=== PATIENT | male | born 1945 | race Caucasian/White ===

== ENCOUNTER 2019-12-08 06:34 | Inpatient (IN) ==
--- NOTE | 2019-11-24 08:45 | PAT Medication Instructions ---
Medication Instructions Date of Service November 24, 2019 Home Medications amlodipine [Norvasc] 2.5 mg PO QAM aspirin 81 mg PO QAM atorvastatin [Lipitor] 20 mg PO QPM citalopram [Celexa] 10 mg PO QPM cyanocobalamin (vitamin B-12) [Vitamin B-12] 1,000 mcg PO QAM finasteride 5 mg PO QPM glimepiride 1 mg PO QAM lisinopril 40 mg PO QAM metformin 1,000 mg PO BID metronidazole [Metrogel] 1 applic TOPICAL UD PRN multivitamin 1 tab PO QAM ASK your prescriber and surgeon aspirin 81 mg PO QAM STOP taking 24 hours before surgery metronidazole [Metrogel] 1 applic TOPICAL UD PRN DO NOT take the morning of surgery cyanocobalamin (vitamin B-12) [Vitamin B-12] 1,000 mcg PO QAM glimepiride 1 mg PO QAM lisinopril 40 mg PO QAM metformin 1,000 mg PO BID multivitamin 1 tab PO QAM Take morning of surgery With a small sip of water, OTHERWISE NOTHING TO EAT OR DRINK AFTER MIDNIGHT: amlodipine [Norvasc] 2.5 mg PO QAM Take evening before surgery atorvastatin [Lipitor] 20 mg PO QPM citalopram [Celexa] 10 mg PO QPM finasteride 5 mg PO QPM metformin 1,000 mg PO BID Other Notes If you have any questions please call us at [phone] or [phone] or [phone] or [phone]
--- NOTE | 2019-11-25 09:23 | Anesthesiology Consultation ---
Date of Service November 25, 2019 Assessment & Plan (1) Encounter for pre-operative examination: - Per assessment on 11/24: Travel screen negative. No known COVID-19 positive contacts or current COVID-19 related symptoms. Surgeon arranging preop COVID testing (scheduled 12/02; [facility]). Awaiting results. - Check [facility] AM DOS - PCP office visit: 11/18/19: "Patient is cleared pending pre-op evaluation by orthopaedics.. He is scheduled next week and EKG, labs, and xray will be done at that time." Preop testing done at [facility] 11/25/19 was unremarkable- [facility] financial secretary will forward results to PCP for their reference.* - ASA instructions per surgeon/prescriber Chart Review Chart Review: Acceptable Risk for Surgery and Patient seen in Pre Admission Testing Teaching & Discussion Pre-Anesthesia Teaching/Discussion Notes: Instructed NPO after midnight before surgery,except medications with 15 cc of water. Medication instructions provided according to the [facility] guidelines. History Surgery Operation Date: 12/08/19 10:05 Proposed Procedures p L2-L3 Decompression and Fusion, L3 Medicrea Removal, Spinal Cord Monitoring - Beto Palomino, Height/Weight Height: 5 ft 11 in Weight: 94.3 kg Allergies Allergy/AdvReac Type Severity Reaction Status Date / Time No Known Allergies Allergy Unknown Verified 11/18/19 12:24 Medications Home Medications Medication Instructions Recorded Confirmed Last Taken amlodipine [Norvasc] 2.5 mg PO QAM 11/18/19 11/18/19 Unknown aspirin 81 mg PO QAM 11/18/19 11/18/19 Unknown atorvastatin [Lipitor] 20 mg PO QPM 11/18/19 11/18/19 Unknown citalopram [Celexa] 10 mg PO QPM 11/18/19 11/18/19 Unknown cyanocobalamin (vitamin B-12) 1,000 mcg PO QAM 11/18/19 11/18/19 Unknown [Vitamin B-12] finasteride 5 mg PO QPM 11/18/19 11/18/19 Unknown glimepiride 1 mg PO QAM 11/18/19 11/18/19 Unknown lisinopril 40 mg PO QAM 11/18/19 11/18/19 Unknown metformin 1,000 mg PO BID 11/18/19 11/18/19 Unknown metronidazole [Metrogel] 1 applic TOPICAL UD PRN 11/18/19 11/18/19 Unknown multivitamin 1 tab PO QAM 11/18/19 11/18/19 Unknown Past Medical History Medical History Diabetes mellitus, type 2 NIDDM History of anxiety HTN (hypertension) Hyperlipidemia Osteoarthritis Exercise / Class Metabolic Activity III < 4 Walking/Shop/Light housework Past Family History Family History Other No family history of adverse response to anesthesia Past Surgical History Surgical History History of back surgery x2 History of colonoscopy History of tooth extraction Past Anesthesia History No Hx of Anesthesia Complications and No Family Hx of Anesthesia Complications History of PONV No Hx of PONV and No Hx of Motion Sickness Social History Smoking Status: Former smoker Do You Dip or Chew Tobacco: No Smoking End Date: Quit many years ago Hx Alcohol Use: Yes Alcohol type: beer alcohol intake frequency: a few times a month Hx Substance Use: No substance use type: does not use Review of Systems Patient denies chest pain, shortness of breath, fever, chills, reflux, cough, wheezing, palpitations. Physical Exam Vital Signs VITALS BP 120/75 P 75 TEMP 97.8 SP02 97%RA RESP 16 PHYSICAL Full neck and c-spine range of motion. Full TMJ range of motion. TMD 3.5 finger breaths Mallampati Score 3 Dentition: partial upper Lungs: clear throughout to auscultation Cardiac: regular rate and rhythm with occasional extra beat, no murmurs noted Spine: normal Carotid arteries: negative bruit Extremities: no edema Testing Laboratory Results 11/25/19 09:48 PT 11.4 Seconds (9.0-12.0) 11/25/19 09:48 INR 1.1 (0.9-1.1) 11/25/19 09:48 APTT 26.4 Seconds (21.0-31.0) 11/25/19 09:48 Urine Color Yellow 11/25/19 09:48 Urine Appearance Clear (Clear) 11/25/19 09:48 Urine pH 7.0 (4.5-7.5) 11/25/19 09:48 Ur Specific [place] 1.017 (1.000-1.030) 11/25/19 09:48 Urine Protein Negative (Negative) 11/25/19 09:48 Urine Glucose (UA) Negative (Negative) 11/25/19 09:48 Urine Ketones Negative (Negative) 11/25/19 09:48 Urine Nitrite Negative (Negative) 11/25/19 09:48 Ur Leukocyte Esterase Negative (Negative) 11/25/19 09:48 Blood Type B Positive 11/25/19 09:48 Antibody Screen NEGATIVE 11/25/19 09:48 10/13/19 SODIUM 143 POTASSIUM 4.3 CHLORIDE 103 CO2 28 BUN 17 CREATININE 0.8 GLUCOSE 113 HGBA1C 5.8% Electrocardiogram Date: 11/25/19 NSR at 60bpm. Possible anterior infarct (no significant change compared to 12/19/2012 per medical technologist hematology review). Chest X-Ray Date: 11/25/19 FINDINGS: Cardiac mediastinal and hilar silhouettes are within normal limits. No pneumothorax, pleural effusion, airspace consolidation or overt pulmonary edema. Degenerative changes of the shoulders and spine. Lower cervical plate and screw fusion hardware. Age-indeterminate 25% anterior endplate compression deformity of L1 is new from comparison. No appreciable retropulsion. IMPRESSION: No acute processes of the chest. Age-indeterminate L1 compression deformity, ne w from 2013.
--- NOTE | 2019-11-25 10:22 | XRay Report ---
XR chest Pre-admission PA/Lat HISTORY: 74 years-old Male pat preoperative exam. No acute chest complaints COMPARISON: Chest radiograph 12/19/2012, lumbar spine radiographs 01/06/2013 TECHNIQUE: PA and lateral views of the chest FINDINGS: Cardiac mediastinal and hilar silhouettes are within normal limits. No pneumothorax, pleural effusion , airspace consolidation or overt pulmonary edema. Degenerative changes of the shoulders and spine. L ower cervical plate and screw fusion hardware. Age-indeterminate 25% anterior endplate compression de formity of L1 is new from comparison. No appreciable retropulsion. IMPRESSION: 1. No acute processes of the chest. 2. Age-indeterminate L1 compression deformity, new from 2013. ACT 112: Negative or not required by law. The above report was generated using voice recognition software. It may contain grammatical, syntax o r spelling errors. Electronically signed by: Chavez De León M.D. 11/25/2019 10:21 AM
[2019-11-25 10:35] LABS: Appearance Urine Clear (Clear); Bilirubin Urine Negative (Negative); Blood Urine Negative (Negative); Color Urine Yellow; Glucose Urine UA Negative (Negative); Ketones Urine Negative (Negative); Leukocyte Esterase Urine Negative (Negative); Nitrite Urine Negative (Negative); Protein Urine Negative (Negative); Specific Gravity Urine 1.017 (1.000-1.030); Urobilinogen Urine Negative (Negative)
[2019-11-25 10:40] LABS: INR 1.1 (0.9-1.1); Partial Thromboplastin Ratio 0.9; Partial Thromboplastin Time 26.4 Seconds (21.0-31.0); Prothrombin Time 11.4 Seconds (9.0-12.0)
[2019-11-25 10:51] LABS: Basophils # (auto) 0.02 K/uL (0-0.2); Basophils % (auto) 0.3 %; Eosinophils # (auto) 0.03 K/uL (0-0.5); Eosinophils % (auto) 0.4 %; Hematocrit (blood only) 43.5 % (42-52); Hemoglobin 14.8 g/dL (14.0-18.0); Immature Granulocytes # (auto) 0.02 K/uL (0.00-0.02); Immature Granulocytes % (auto) 0.3 %; Lymphocytes # (auto) 2.04 K/uL (1.2-3.4); Lymphocytes % (auto) 27.1 %; Mean Corpuscular Hemoglobin 29.9 pg (25-34); Mean Corpuscular Volume 87.9 fL (80-100); Mean Platelet Volume 8.9 fL (7.4-10.4); Monocytes # (auto) 0.36 K/uL (0.11-0.59); Monocytes % (auto) 4.8 %; Neutrophils # (auto) 5.07 K/uL (1.4-6.5); Neutrophils % (auto) 67.1 %; Platelet Count 202 K/uL (130-400); RDW Coefficient of Variation 13.4 % (11.5-14.5); RDW Standard Deviation 42.9 fL (36.4-46.3); Red Blood Count 4.95 M/uL (4.7-6.1); White Blood Count 7.54 K/uL (4.8-10.8)
--- NOTE | 2019-11-26 14:12 | Electrocardiogram Report ---
Test Reason : Blood Pressure : / mmHG Vent. Rate : 060 BPM Atrial Rate : 060 BPM P-R Int : 174 ms QRS Dur : 092 ms QT Int : 404 ms P-R-T Axes : 063 -01 007 degrees QTc Int : 404 ms Normal sinus rhythm Possible Anterior infarct , age undetermined Abnormal ECG When compared with ECG of 19-DEC-2012 11:38, No significant change was found Confirmed by Syd Castillo ([id number]) on 11/26/2019 2:12:01 PM Referred By: Beto Palomino Confirmed By:Syd Castillo
[~2019-12-08 06:34] MED LIST: ACETAMINOPHEN 500 MG TAB PO SCH; CEFAZOLIN 2000MG 2,000 MG/15 ML SYR IV SCH; CeleBREX 200 MG CAP PO SCH; GABAPENTIN 300 MG CAP PO SCH; LR 15ML/HR IV SCH
[2019-12-08] MEDS ORDERED: fentaNYL citrate 100 MCG/2 ML VIAL ONE ×2 (06:42→08:15)
[2019-12-08] MEDS ORDERED: MIDAZOLAM HCL 1 MG/ML 2ML VIAL ONE (06:42)
[2019-12-08] MEDS ORDERED: BUPIVACAINE/EPINEPHRINE 0.25% 1:200,000 30 ML VIAL ONE (07:02)
[2019-12-08] MEDS ORDERED: BACITRACIN INJ 50,000 UNIT VIAL ONE (07:02)
[2019-12-08] MEDS ORDERED: ONDANSETRON INJ 2 MG/ML 2 ML VIAL ONE (07:10)
[2019-12-08] MEDS ORDERED: LIDOCAINE HCL 2% 2 ML VIAL/AMP(20MG/ML) INFIL ONE (07:10)
[2019-12-08] MEDS ORDERED: ROCURONIUM BROMIDE 10 MG/ML 5 ML VIAL IV ONE ×2 (07:10→08:48)
[2019-12-08] MEDS ORDERED: PROPOFOL IV EMULSION 10 MG/ML 20 ML VIAL IV ONE (07:10)
[2019-12-08] MEDS ORDERED: DEXAMETHASONE SOD INJ 4 MG/ML VIAL ONE (07:10)
[2019-12-08] MEDS ORDERED: HYDROmorphone INJ 1 MG/ML SYRINGE IV PRN ×2 (07:11→10:51)
[2019-12-08] MEDS ORDERED: MEPERIDINE HCL 25 MG/ML CARP/VIAL IV PRN (07:11)
[2019-12-08] MEDS ORDERED: PHENYLEPHRINE 100MCG/ML 5ML SYR IV PRN (07:11)
[2019-12-08] MEDS ORDERED: LABETALOL HCL IV 5 MG/ML 20ML IV PRN (07:11)
[2019-12-08] MEDS ORDERED: ONDANSETRON INJ 2 MG/ML 2 ML VIAL IV PRN ×2 (07:11→10:51)
[2019-12-08] MEDS ORDERED: ePHEDrine sulfate 50 MG/ML AMP IV PRN (07:11)
[2019-12-08] MEDS ORDERED: ATROPINE SULFATE 0.1 MG/ML 10ML SYR IV PRN (07:11)
--- NOTE | 2019-12-08 07:31 | History & Physical Bridge Note ---
Date of Service December 08, 2019 History & Physical Bridge Note I have examined the patient, reviewed the History & Physical and in the interval since the performance of the History & Physical I have noted the following changes of clinical significance: no changes noted
--- NOTE | 2019-12-08 07:32 | History & Physical Report ---
Date of Service December 08, 2019 Assessment & Plan (1) Neurogenic claudication due to lumbar spinal stenosis: Admission and Anticipated Discharge Date Admission Date: L2-L3 decompression fusion, L3 Medicrea removal History of Present Illness Chief Complaint: Back and bilateral leg pain Primary Care Provider: NO PCP This is a 74-year-old male who presents with marked decline in status with back and bilateral leg pain. After failing a course of nonoperative care is here for surgical invention. Allergies Allergy/AdvReac Type Severity Reaction Status Date / Time No Known Allergies Allergy Unknown Verified 12/08/19 06:58 Home Medications Home Medications Medication Instructions Recorded Confirmed Type amlodipine [Norvasc] 2.5 mg PO QAM 11/18/19 12/08/19 History aspirin 81 mg PO QAM 11/18/19 12/08/19 History atorvastatin [Lipitor] 20 mg PO QPM 11/18/19 12/08/19 History citalopram [Celexa] 10 mg PO QPM 11/18/19 12/08/19 History cyanocobalamin (vitamin B-12) 1,000 mcg PO QAM 11/18/19 12/08/19 History [Vitamin B-12] finasteride 5 mg PO QPM 11/18/19 12/08/19 History glimepiride 1 mg PO QAM 11/18/19 12/08/19 History lisinopril 40 mg PO QAM 11/18/19 12/08/19 History metformin 1,000 mg PO BID 11/18/19 12/08/19 History metronidazole [Metrogel] 1 applic TOPICAL UD PRN 11/18/19 12/08/19 History multivitamin 1 tab PO QAM 11/18/19 12/08/19 History Past Med/Surg History Medical History Diabetes mellitus, type 2 NIDDM History of anxiety HTN (hypertension) Hyperlipidemia Osteoarthritis Surgical History History of back surgery x2 History of colonoscopy History of tooth extraction Family History Other No family history of adverse response to anesthesia Social History Smoking Status: Former smoker Smoking End Date: Quit many years ago; Second Hand Exposure: No; Do You Dip or Chew Tobacco: No; Tobacco Cessation Education Requested by Patient: No Hx Alcohol Use: Yes Alcohol type: beer Hx Substance Use: No Preferred Language: Yakut Communication Ability: Effective Marketing Program Coordinator Required: No Beliefs That Will Affect Care: None Current Living Situation: Spouse Feels Safe at Home: Yes Safety Concerns: Feels Safe At This Time Assistive Devices: Cane, Denture - Upper and Glasses Physical Exam Physical Exam: Patient is alert and oriented neurologically intact. Heart regular rate and rhythm. Lungs clear to auscultation. Results & Data ([facility]) Vital Signs (Past 12 Hours) Vital Signs Temp Pulse Resp BP Pulse Ox 12/08/19 07:13 36.5 C 70 20 196/97 H 99
[2019-12-08] MEDS ORDERED: FLOSEAL HEMOSTATIC MATRIX 10ML TOP ONE (08:21)
[2019-12-08] MEDS ORDERED: NEOSTIGMINE METHYLSULFATE 1 MG/ML 10ML VIAL ONE (08:43)
[2019-12-08] MEDS ORDERED: GLYCOPYRROLATE 0.2 MG/ML VIAL ONE (08:43)
[2019-12-08] MEDS ORDERED: ePHEDrine sulfate 50 MG/ML SYR ONE (08:58)
--- NOTE | 2019-12-08 09:51 | Operative Report ---
Post Operative Report Pre & Post Diagnosis Operation Date: 12/08/19 07:45 Pre-Op Diagnosis: Spinal Stenosis, Lumbar Region with Neurogenic Claudication Post-Op Diagnosis: Spinal Stenosis, Lumbar Region with Neurogenic Claudication I identified the patient and participated in the time-out.: Yes Procedure Operation Date: 12/08/19 07:45 Actual Procedures #1 removal of posterior instrumentation L3-4 L4-5. #2 exploration of fusion L3 445. #3 lumbar decompression with bilateral medial facetectomies and foraminotomies L1-L2 3. #4 posterior spinal fusion L2-3. #5 placement posterior instrumentation L2-3. #6 interbody fusion L2-3. #7 placement of peek cage 11 x 26 mm at L2-3. #8 placement locally harvested morselized autograft in the posterior lateral gutters. #9 placement infuse collagen sponge, master graft in the posterior lateral gutters and ostial amp and interbody space. Surgeon Beto Palomino, Power Marketer Sofie Wilson Estimated Blood Loss 250 Findings Consistent with Post-Op Diagnosis Specimens None Indications This is a 74-year-old male presents with above-mentioned diagnosis after failing extensive course of nonoperative care is here for surgical intervention. Description of Procedure Patient was met with identified informed consent obtained. Patient was then taken to the operative suite underwent an patient placed in a prone position the Jerald table on top Rick frame. All bony prominences well-padded eyes inspected to ensure no external pressure placed upon them. This point the lumbar spine was prepped and draped in a normal sterile fashion. Sharp dissection with the assistance of Bovie cautery was performed down to and exposing the lamina and transverse processes of L2 and instrumentation at L3 and L4 and L5 bilaterally. And then proceeded move the hardware bilaterally explore the fusion mass noting it to be mature and intact. Informed complete laminectomy of L2 partial laminectomy of L1 including bilateral medial facetectomies and foraminotomies addressing severe spinal stenosis. Pedicle screws were then placed in L2 and L3 bilaterally with assistance of fluoroscopy the proper sized yaz placed. By way of a transforaminal approach on the right a complete discectomy of L2-3 was performed endplates coated to subcortical bleeding bone and an 11 x 26 mm peek cage filled with osteo-bone graft tapped in position. The rods were then locked in final position bilaterally. The transverse processes of L2 and L3 burred to subcortical bleeding bone. Infuse collagen sponge master graft local autograft was placed in the posterior lateral gutters. 15 round PROMISE drain inserted. Incision was then closed with 1 Vicryl the fascia 2-0 Vicryl subcutaneously and 4 Monocryl for final skin closure. Steri-Strip sterile dressing was placed. Patient will continue PACU stable condition. Please note spinal cord monitoring was utilized at the procedure no changes noted. Lastly Sofie Wilson was present at the entire surgery involved the patient positioning complex portions of the surgery and final skin closure. I attest to the content of the Intraoperative Record and any orders documented therein. Any exceptions are noted below.
--- NOTE | 2019-12-08 10:04 | Fluoroscopy Report ---
INTRAOPERATIVE RADIOGRAPHS CLINICAL HISTORY: L2-L3 spinal fusion. Hardware removal. Fluoroscopy time: 9 seconds. FINDINGS: 2 spot fluoroscopic views of the lumbar spine are presented. There has been multilevel disc ectomy and laminectomy throughout the lumbar spine. Interpedicular screws have been placed at L2-L3. The orthopedic hardware appears intact. IMPRESSION: Intraoperative images from lumbar spinal fusion as above. Electronically signed by: Natanael Ellis M.D. 12/08/2019 10:02 AM
[2019-12-08] MEDS: fentaNYL citrate 100 MCG/2 ML VIAL IV PRN ×4 (10:13→10:28)
--- NOTE | 2019-12-08 10:34 | Anesthesiology Progress Note ---
Date of Service December 08, 2019 Anesthesia Post Procedure Vital Signs Vital Signs: Temp Pulse Pulse Resp BP Pulse Ox 12/08/19 10:25 77 18 139/85 99 12/08/19 10:15 73 17 142/84 H 100 12/08/19 10:09 36.3 C L 86 18 142/72 H 97 12/08/19 07:13 36.5 C 70 20 196/97 H 99 Pain Intensity Back: Pain Intensity: 3 Transfer of Care Handoff Completed per policy Notes Mental Status: alert / awake / arousable Patient Amnestic to Procedure: Yes Nausea / Vomiting: adequately controlled Pain: adequately controlled Airway Patency, RR, SpO2: stable & adequate BP & HR: stable & adequate Hydration State: stable & adequate Anesthetic Complications: no major complications apparent and Pt Satisfied with anesthetic care
[2019-12-08] MEDS ORDERED: LORazepam 0.5 MG/1 ML VIAL IV PRN (10:51)
[2019-12-08] MEDS ORDERED: DO NOT ADMINISTER PNEUMOCOCCAL VACCINE PRN (10:51)
[2019-12-08] MEDS ORDERED: SOD PHOSPHATE/SOD BIPHOSPHATE ENEMA 132 ML BTL PR PRN (10:51)
[2019-12-08] MEDS ORDERED: PROMETHAZINE HCL 12.5 MG in SODIUM CHLORIDE 0.9% 50 ML IV PRN (10:51)
[2019-12-08] MEDS ORDERED: DO NOT ADMINISTER FLU VACCINE PRN (10:51)
[2019-12-08] MEDS ORDERED: bisacodyL 10 MG SUPP PR PRN (10:51)
[2019-12-08] MEDS ORDERED: ALUMINUM/MAGNESIUM SUSP 30 ML UDC PO PRN (10:51)
[2019-12-08] MEDS ORDERED: ONDANSETRON 4 MG OD TAB PO PRN (10:51)
[2019-12-08] MEDS ORDERED: HYDROmorphone INJ 0.5 MG/0.5 ML SYR IV PRN (10:51)
[2019-12-08] MEDS ORDERED: NALOXONE HCL 0.4 MG/1 ML VIAL/CARP IV PRN (10:51)
[2019-12-08] MEDS ORDERED: OXYCODONE HCL IR 5 MG TAB (IMMEDIATE RELEASE) PO PRN (10:51)
[2019-12-08] MEDS ORDERED: FAMOTIDINE 20 MG TAB PO PRN (10:51)
[2019-12-08] MEDS ORDERED: MAGNESIUM HYDROXIDE SUSP 30 ML UDC PO PRN (10:51)
[2019-12-08] MEDS ORDERED: LORazepam 0.5 MG TAB PO PRN (10:51)
[2019-12-08] MEDS ORDERED: METOCLOPRAMIDE HCL INJ 5 MG/ML 2 ML VIAL IV PRN (10:51)
[2019-12-08] MEDS ORDERED: PHARMACY GLYCEMIC MGMT CONSULT PRN (10:56)
[2019-12-08] MEDS ORDERED: GLUCOSE 10 TABS/TUBE PO PRN (11:00)
[2019-12-08] MEDS ORDERED: GLUCOSE 40% GEL 15 GM TUBE PO PRN (11:00)
[2019-12-08] MEDS ORDERED: DEXTROSE 50% 50 ML SYRINGE IV PRN (11:00)
[2019-12-08] MEDS ORDERED: CARBOHYDRATES FOR HYPOGLYCEMIA PO PRN (11:00)
[2019-12-08] MEDS ORDERED: GLUCAGON FOR INJ 1 MG VIAL IM PRN (11:00)
--- NOTE | 2019-12-08 11:26 | Consultation ---
Date of Consultation December 08, 2019 Assessment & Plan (1) Neurogenic claudication due to lumbar spinal stenosis: s/p Lumbar spine surgery POD #[address] Palomino "Actual Procedures #1 removal of posterior instrumentation L3-4 L4-5. #2 exploration of fusion L3 445. #3 lumbar decompression with bilateral medial facetectomies and foraminotomies L1-L2 3. #4 posterior spinal fusion L2-3. #5 placement posterior instrumentation L2-3. #6 interbody fusion L2-3. #7 placement of peek cage 11 x 26 mm at L2-3. #8 placement locally harvested morselized autograft in the posterior lateral gutters. #9 placement infuse collagen sponge, master graft in the posterior lateral gutters and ostial amp and interbody space." EBL 250ml; PROMISE drain 250ml Pain/wound management per Ortho Activity and therapy as directed by Ortho Encourage incentive spirometry, wean O2 as able Monitor H&H (2) Diabetes mellitus, type 2: Well-controlled T2DM, last A1c 5.8 10/13/2019 Hold metformin and glimepiride Glycemic pharmacy on board, appreciate their management Postop BSG 157 (3) HTN (hypertension): Blood pressure controlled on amlodipine and lisinopril Monitor (4) Hyperlipidemia: Continue statin (5) DVT prophylaxis: Per primary Follow up: PCP Nette Khoury PA-C upon discharge Pt was seen and examined in collaboration with Dr. Luna, please see addendum Starting 12/09/2019 pt will be under the care of Dr. Antoine Thank you for this consultation. We will follow the patient with you during their hospital stay. You can reach a member of the [place] Hospitalist Team 25/09 via pager @ [phone]. Supervising Physician Co-Signing Physician Notes I, Dr. Sixto Luna, have seen and examined the patient Win Kaur with physician assistant store manager and would like to comment that On Physical exam General: no acute distress, has some nausea. No vomiting Heart: regular rate Lungs: clear to auscultation bilaterally Abdomen: soft, nontender, positive bowel sounds Extremities/Neuro: able to move the upper extremities, able to wiggle the toes of the lower extremities Assessment and Plan -This is a patient with Spinal Stenosis, Lumbar Region with Neurogenic Claudication -Operation Date: 12/08/[address] Palomino and is s/p lumbar spine surgery (#1 removal of posterior instrumentation L3-4 L4-5. #2 exploration of fusion L3 445. #3 lumbar decompression with bilateral medial facetectomies and foraminotomies L1-L2 3. #4 posterior spinal fusion L2-3. #5 placement posterior instrumentation L2-3. #6 interbody fusion L2-3. #7 placement of peek cage 11 x 26 mm at L2-3. #8 placement locally harvested morselized autograft in the posterior lateral gutters. #9 placement infuse collagen sponge, master graft in the posterior lateral gutters and ostial amp and interbody space.) -Estimated Blood Loss of 250 cc in the operating room -follow the CBC -Type 2 diabetes mellitus without fdc current use of insulin: orthopedics consulted pharmacy glycemic control for diabetes management -blood pressure medications, home statin -prn pain medications and prn anti-emetics -PT/OT assessments for 12/09/2019 -agree with other assessments and plans as documented by physician assistant store manager -My colleague Dr. Antoine will be following the patient as consult hospitalist starting on 12/09/2019 History of Present Illness Requesting Physician: Dr. Palomino Reason for Consultation: Postop medical management Attending Physician: Beto Palomino, History of Present Illness This is a 74-year-old male who has significant past medical history of T2DM, HTN, HLD, BPH, NADER who presents to [facility] for elective lumbar procedure by Dr. Palomino. Postoperatively he feels well but, "goofy." He currently denies any back pain secondary to still feeling under anesthesia. He denies any fever, chills, sweats, illness, dizziness, chest pain, shortness of breath, nausea, vomiting, abdominal pain. Prior to procedure he was passing urine and moving bowels. He did take his morning Norvasc prior to procedure. He does have T2DM which is well controlled on metformin and glimepiride. His last A1c in October was 5.8. He also history of hypertension controlled on oral antihypertensives as well as NADER, but mood has been stable. His is at bedside and offers no complaints or concerns. Allergies Allergy/AdvReac Type Severity Reaction Status Date / Time No Known Allergies Allergy Unknown Verified 12/08/19 06:58 Home Medications Home Medications Medication Instructions Recorded Confirmed Type amlodipine [Norvasc] 2.5 mg PO QAM 11/18/19 12/08/19 History aspirin 81 mg PO QAM 11/18/19 12/08/19 History atorvastatin [Lipitor] 20 mg PO QPM 11/18/19 12/08/19 History citalopram [Celexa] 10 mg PO QPM 11/18/19 12/08/19 History cyanocobalamin (vitamin B-12) 1,000 mcg PO QAM 11/18/19 12/08/19 History [Vitamin B-12] finasteride 5 mg PO QPM 11/18/19 12/08/19 History glimepiride 1 mg PO QAM 11/18/19 12/08/19 History lisinopril 40 mg PO QAM 11/18/19 12/08/19 History metformin 1,000 mg PO BID 11/18/19 12/08/19 History metronidazole [Metrogel] 1 applic TOPICAL UD PRN 11/18/19 12/08/19 History multivitamin 1 tab PO QAM 11/18/19 12/08/19 History Patient History Medical History (Updated 12/08/19 @ 11:38 by Lanie Juárez PA-C) Diabetes mellitus, type 2 NIDDM History of anxiety HTN (hypertension) Hyperlipidemia Osteoarthritis Surgical History History of back surgery x2 History of colonoscopy History of tooth extraction Family History Mother Alzheimer disease Father Heart disease Social History Smoking Status: Former smoker Smoking End Date: Quit many years ago; Second Hand Exposure: No; Do You Dip or Chew Tobacco: No; Tobacco Cessation Education Requested by Patient: No Hx Alcohol Use: Yes Alcohol type: beer Hx Substance Use: No Preferred Language: Cymraes Communication Ability: Effective [employer]orer [employer] Required: No Beliefs That Will Affect Care: None Current Living Situation: Spouse Feels Safe at Home: Yes Safety Concerns: Feels Safe At This Time Assistive Devices: Cane, Denture - Upper and Glasses Review of Systems Review of Systems: All systems reviewed & are unremarkable except as noted in HPI & below Physical Exam Physical Exam: Constitutional: WD/WN, drowsy, vitals as above, NAD, sitting up in bed, pleasant, conversing easily Head: Normocephalic, Atraumatic Eyes: PERRL, conjunctivae normal, anicteric sclerae ENMT: external ear and nose normal, oropharynx normal Neck: trachea midline, no thyromegaly normal visual inspection Respiratory: Oxygen mask in place, normal respiratory effort, lungs clear to auscultation, no wheeze, rales, rhonchi. Normal insp/exp effort, no accessory muscle use Cardiovascular: RRR, no murmur, no edema Vessels: no JVD or carotid bruit Chest: normal inspection of chest Abdomen: normal bowel sounds, soft, nontender, no hepatosplenomegaly Musculoskeletal: no cyanosis or clubbing, extremities motor strength 5/5, lumbar dressing CDI, PROMISE drain with serosanguineous drainage Skin: no rashes, warm and dry normal turgor Neurologic: PERRL, EOMI, accommodation nl, no face palsy, no dysarthria CN's II-XI intact bilaterally and moves all extremities Psychiatric: A+Ox3, euthymic affect Lymphatic: no cervical or axillary lymphadenopathy : [place] cath draining yellow urine Results & Data ([facility] Vital Signs (Past 12 Hours) Vital Signs Temp Pulse Pulse Pulse Resp BP BP 12/08/19 10:50 36.6 C 77 18 156/81 H 12/08/19 10:35 36.5 C 83 17 153/73 H 12/08/19 10:25 77 18 139/85 12/08/19 10:15 73 17 142/84 H 12/08/19 10:09 36.3 C L 86 18 142/72 H 12/08/19 07:13 36.5 C 70 20 196/97 H Pulse Ox 12/08/19 10:50 98 12/08/19 10:35 99 12/08/19 10:25 99 12/08/19 10:15 100 12/08/19 10:09 97 12/08/19 07:13 99 Laboratory Results Preop labs 11/25/2019 H&H 14.8 and 43.5, WBC 7.54, platelet 202 Labs 10/13/2019 BUN 17/cr.8, A1C 5.8 Diagnostic Findings CXR: IMPRESSION: 1. No acute processes of the chest. 2. Age-indeterminate L1 compression deformity, new from 2013. Lumbar Spine Xray: IMPRESSION: Intraoperative images from lumbar spinal fusion as above. Medications Administered Acetaminophen (Acetaminophen 500 Mg Tab) 1,000 mg PO PREOP CHA Stop: 12/08/19 18:00 Last Admin: 12/08/19 07:37 Dose: 1,000 mg Documented by: [id number] Celecoxib (Celebrex 200 Mg Cap) 200 mg PO PREOP CHA Stop: 12/08/19 18:00 Last Admin: 12/08/19 07:36 Dose: 200 mg Documented by: [id number] Fentanyl Citrate (Fentanyl Citrate 100 Mcg/2 Ml Vial) 25 mcg IV Q5M PRN PRN Reason: PACU Use Only-Pain Stop: 12/08/19 15:11 Last Admin: 12/08/19 10:28 Dose: 25 mcg Documented by: [id number] Admin: 12/08/19 10:23 Dose: 25 mcg Documented by: [id number] Admin: 12/08/19 10:18 Dose: 25 mcg Documented by: [id number] Admin: 12/08/19 10:13 Dose: 25 mcg Documented by: [id number] Gabapentin (Gabapentin 300 Mg Cap) 300 mg PO PREOP CHA Stop: 12/08/19 18:00 Last Admin: 12/08/19 07:37 Dose: 300 mg Documented by: [id number] Lactated Ringer's (Lr) 1,000 mls @ 15 mls/hr IV .Q24H CHA Stop: 12/09/19 05:59 Last Infusion: 12/08/19 07:42 Dose: 0 mls/hr Documented by: [id number] Admin: 12/08/19 07:06 Dose: 15 mls/hr Documented by: [id number] Cefazolin Sodium (Ancef 2000mg) 2,000 mg in 15 mls @ 3.75 mls/min IV PREOP CHA; Protocol Stop: 12/08/19 18:00 Last Admin: 12/08/19 07:42 Dose: 3.75 mls/min Documented by: [id number] Sodium Chloride (Nss 1000ml) 1,000 mls @ 100 mls/hr IV .Q10H CHA Stop: 01/07/20 10:50 Last Admin: 12/08/19 11:31 Dose: 100 mls/hr Documented by: [id number] Ondansetron HCl (Ondansetron Inj 2 Mg/Ml 2 Ml Vial) 4 mg IV ONCE PRN PRN Reason: PACU Use Only-Nausea/Vomiting Stop: 12/08/19 15:11 Last Admin: 12/08/19 10:13 Dose: 4 mg Documented by: [id number] Discontinued Medications Bacitracin (Bacitracin Inj 50,000 Unit Vial) Confirm Administered Dose 50,000 units .ROUTE .STK-MED ONE Stop: 12/08/19 07:03 Last Admin: 12/08/19 08:24 Dose: 50,000 units Documented by: [id number] Bupivacaine HCl/Epinephrine Bitart (Bupivacaine/Epinephrine 0.25% 1:200,000 30 Ml Vial) Confirm Administered Dose 30 ml .ROUTE .STK-MED ONE Stop: 12/08/19 07:03 Last Admin: 12/08/19 08:24 Dose: 30 ml Documented by: [id number] Miscellaneous ( Floseal Hemostatic Matrix 10ml) 20 ml TOP ONCE ONE Stop: 12/08/19 08:22 Last Admin: 12/08/19 09:40 Dose: 25 ml Documented by: [id number] ECG Rate (beats per minute): 70 Rhythm: normal sinus
[2019-12-08] MEDS ORDERED: PROMETHAZINE HCL 6.25 MG in SODIUM CHLORIDE 0.9% 50 ML IV STA (11:30)
[2019-12-08] MEDS: SODIUM CHLORIDE 0.9% 1000ML 1,000 ML IV SCH ×2 (11:31→20:42)
[2019-12-08] MEDS ORDERED: NovoLIN-N (NPH) PER UNIT CHARGE SQ ONE (12:45)
[2019-12-08] MEDS: INSULIN ASPART 100 UNITS/ML 3 ML PEN SC SCH ×3 (13:06→20:32)
[2019-12-08] MEDS ORDERED: ACETAMINOPHEN 1,000 MG/100 ML VIAL IV PRN (15:00)
[2019-12-08] MEDS: CEFAZOLIN 2000MG 2,000 MG/15 ML SYR IV SCH ×2 (17:53→23:49)
[2019-12-08] MEDS: CITALOPRAM 20 MG TAB PO SCH (20:16)
[2019-12-08] MEDS: FINASTERIDE 5 MG TAB PO SCH (20:25)
[2019-12-08] MEDS: DOCUSATE SODIUM/SENNA 50/8.6MG TAB PO SCH (20:26)
[2019-12-08] MEDS: ATORVASTATIN 20 MG TAB PO SCH (20:26)
[2019-12-09] MEDS ORDERED: INSULIN ASPART 100 UNITS/ML 3 ML PEN SC SCH
[2019-12-09 05:45] LABS: Basophils # (auto) 0.01 K/uL (0-0.2); Basophils % (auto) 0.1 %; Hematocrit (blood only) 39.3 % (42-52); Hemoglobin 13.2 g/dL (14.0-18.0); Immature Granulocytes # (auto) 0.04 K/uL (0.00-0.02); Immature Granulocytes % (auto) 0.3 %; Lymphocytes # (auto) 2.72 K/uL (1.2-3.4); Lymphocytes % (auto) 17.8 %; Mean Corpuscular Hemoglobin 29.5 pg (25-34); Mean Corpuscular Hgb Conc 33.6 g/dL (32-36); Mean Corpuscular Volume 87.9 fL (80-100); Mean Platelet Volume 8.6 fL (7.4-10.4); Monocytes # (auto) 0.92 K/uL (0.11-0.59); Neutrophils # (auto) 11.59 K/uL (1.4-6.5); Neutrophils % (auto) 75.8 %; Platelet Count 191 K/uL (130-400); RDW Coefficient of Variation 13.6 % (11.5-14.5); RDW Standard Deviation 43.4 fL (36.4-46.3); Red Blood Count 4.47 M/uL (4.7-6.1); White Blood Count 15.28 K/uL (4.8-10.8)
[2019-12-09] MEDS: POLYETHYLENE (MIRALAX) 17 GM PACK PO SCH ×4 (06:13→23:54)
[2019-12-09 06:19] LABS: BUN Creatinine Ratio 23.6 (10-20); Calcium 8.2 mg/dl (8.5-10.1); Creatinine Clr Calc Pharmacy 98.8 ml/min; Est GFR (African American) 103.8; Est GFR (Non-African American) 89.6; Potassium 4.1 mmol/L (3.5-5.1)
[2019-12-09] MEDS: SODIUM CHLORIDE 0.9% 1000ML 1,000 ML IV SCH (08:03)
[2019-12-09] MEDS: ASPIRIN 81 MG CHEW PO SCH (08:48)
[2019-12-09] MEDS: MULTIVITAMIN TAB PO SCH (08:48)
[2019-12-09] MEDS: AMLODIPINE BESYLATE 5 MG TAB PO SCH (08:48)
[2019-12-09] MEDS: lisinopriL 40 MG TAB PO SCH (08:49)
[2019-12-09] MEDS: CYANOCOBALAMIN 500 MCG TABLET (VITAMIN B-12) PO SCH (08:49)
[2019-12-09] MEDS: INSULIN ASPART 100 UNITS/ML 3 ML PEN SC SCH ×4 (08:51→22:05)
--- NOTE | 2019-12-09 08:55 | Hospitalist Progress Note ---
Date of Service December 09, 2019 Assessment & Plan (1) Neurogenic claudication due to lumbar spinal stenosis: POD #[address] Palomino "Actual Procedures #1 removal of posterior instrumentation L3-4 L4-5. #2 exploration of fusion L3 445. #3 lumbar decompression with bilateral medial facetectomies and foraminotomies L1-L2 3. #4 posterior spinal fusion L2-3. #5 placement posterior instrumentation L2-3. #6 interbody fusion L2-3. #7 placement of peek cage 11 x 26 mm at L2-3. #8 placement locally harvested morselized autograft in the posterior lateral gutters. #9 placement infuse collagen sponge, master graft in the posterior lateral gutters and ostial amp and interbody space." EBL 250ml; PROMISE drain 840ml Pain/wound management per Ortho Activity and therapy as directed by Ortho Encourage incentive spirometry, wean O2 as able Monitor H&H - pre op hgb 14.8, hgb today 13.2 Pt with mild leukocytosis, he is afebrile asymptomatic likely in setting of postop state -will monitor (2) Diabetes mellitus, type 2: Well-controlled T2DM, last A1c 5.8 10/13/2019 Hold metformin and glimepiride Glycemic pharmacy on board, appreciate their management BSG 143 this a.m. (3) HTN (hypertension): Blood pressure elevated this morning prior to administration of medications continue amlodipine and lisinopril Monitor (4) Hyperlipidemia: Continue statin (5) DVT prophylaxis: Per primary Follow up: PCP Nette Khoury PA-C upon discharge Pt was seen and examined in collaboration with Dr. Antoine, please see addendum Thank you for this consultation. We will follow the patient with you during their hospital stay. You can reach a member of the [facility] Hospitalist Team 25/09 via pager @ [phone]. Admission and Anticipated Discharge Date Admission Date: December 08, 2019 Supervising Physician Co-Signing Physician Notes pt is s/p lumber decompression surgery no acute medical issues post op follow CBC to assess post op ac blood loss anemia please refer to further documentation by Lanie Russell PA-C for discussion of other chronic issues Rhonda Antoine MD Subjective Patient was seen and examined in room 314. Follow-up lumbar surgery by Dr. Palomino. He is sitting up eating breakfast and feels well. Pain currently 4/5 of the low back. He denies any fever, chills, sweats, lightheadedness, dizziness, chest pain, shortness breath, nausea vomiting, abdominal pain. He is passing minimal flatus. He continues to have [place] cath in place. Did not sleep well last night secondary to "drain in his back." Review of Systems Review of Systems: All systems reviewed & are unremarkable except as noted in HPI & below Physical Exam Physical Exam: Gen: WD/WN, NAD, A&O x3 HEENT: Normocephalic, atraumatic, conjunctivae moist, sclerae anicteric, mucous membranes moist. Lung: Clear to Auscultation bilaterally, no wheezes/rales/rhonchi Heart: Regular rate, regular rhythm, no murmurs, rubs, or gallops Abdomen: Soft, NT, ND +BS x 4 Extremities: No edema, lumbar dressing CDI, PROMISE drain intact with serosanguineous drainage Skin: Warm, no rash, negative turgor. : [place] draining yellow urine Results & Data Results & Data ([facility]) Vital Signs (Past 12 Hours) Vital Signs Temp Pulse Resp BP BP Pulse Ox 12/09/19 07:21 36.5 C 68 16 168/64 H 163/87 H 96 12/09/19 03:45 36.6 C 70 14 149/87 H 96 12/08/19 23:01 36.5 C 59 L 14 132/69 97 Laboratory Results Short CBC 12/09/19 Range/Units 05:30 WBC 15.28 H (4.8-10.8) K/uL Hgb 13.2 L (14.0-18.0) g/dL Hct 39.3 L (42-52) % Plt Count 191 (130-400) K/uL BMP 12/09/19 05:30 Sodium 141 Potassium 4.1 Chloride 109 H Carbon Dioxide 28 BUN 18 Creatinine 0.78 Glucose 171 H Calcium 8.2 L Medications Administered Atorvastatin Calcium (Atorvastatin 20 Mg Tab) 20 mg PO QPM CHA Stop: 01/07/20 20:59 Last Admin: 12/08/19 20:26 Dose: 20 mg Documented by: [id number] Citalopram Hydrobromide (Citalopram 20 Mg Tab) 10 mg PO QPM CHA Stop: 01/07/20 20:59 Last Admin: 12/08/19 20:16 Dose: 10 mg Documented by: [id number] Finasteride (Finasteride 5 Mg Tab) 5 mg PO QPM CHA Stop: 01/07/20 20:59 Last Admin: 12/08/19 20:25 Dose: 5 mg Documented by: [id number] Insulin Aspart (Insulin Aspart 100 Units/Ml 3 Ml Pen) 0 units SC ACHS CHA; Prot ocol Stop: 01/07/20 11:29 Last Admin: 12/08/19 20:32 Dose: 6 units Documented by: [id number] Cosigned by: [id number] Admin: 12/08/19 17:54 Dose: 4 units Documented by: [id number] Cosigned by: [id number] Admin: 12/08/19 13:06 Dose: 3 units Documented by: [id number] Cosigned by: [id number] Polyethylene Glycol (Polyethylene (Miralax) 17 Gm Pack) 17 gm PO Q6 CHA Stop: 01/08/20 05:59 Last Admin: 12/09/19 06:13 Dose: 17 gm Documented by: [id number] Senna/Docusate Sodium (Docusate Sodium/Senna 50/8.6mg Tab) 2 tab PO HS CHA Stop: 01/07/20 20:59 Last Admin: 12/08/19 20:26 Dose: 2 tab Documented by: [id number] Discontinued Medications Acetaminophen (Acetaminophen 500 Mg Tab) 1,000 mg PO PREOP CHA Stop: 12/08/19 18:00 Last Admin: 12/08/19 07:37 Dose: 1,000 mg Documented by: [id number] Bacitracin (Bacitracin Inj 50,000 Unit Vial) Confirm Administered Dose 50,000 units .ROUTE .STK-MED ONE Stop: 12/08/19 07:03 Last Admin: 12/08/19 08:24 Dose: 50,000 units Documented by: [id number] Bupivacaine HCl/Epinephrine Bitart (Bupivacaine/Epinephrine 0.25% 1:200,000 30 Ml Vial) Confirm Administered Dose 30 ml .ROUTE .STK-MED ONE Stop: 12/08/19 07:03 Last Admin: 12/08/19 08:24 Dose: 30 ml Documented by: [id number] Celecoxib (Celebrex 200 Mg Cap) 200 mg PO PREOP CHA Stop: 12/08/19 18:00 Last Admin: 12/08/19 07:36 Dose: 200 mg Documented by: [id number] Fentanyl Citrate (Fentanyl Citrate 100 Mcg/2 Ml Vial) 25 mcg IV Q5M PRN PRN Reason: PACU Use Only-Pain Stop: 12/08/19 15:11 Last Admin: 12/08/19 10:28 Dose: 25 mcg Documented by: [id number] Admin: 12/08/19 10:23 Dose: 25 mcg Documented by: [id number] Admin: 12/08/19 10:18 Dose: 25 mcg Documented by: [id number] Admin: 12/08/19 10:13 Dose: 25 mcg Documented by: [id number] Gabapentin (Gabapentin 300 Mg Cap) 300 mg PO PREOP CHA Stop: 12/08/19 18:00 Last Admin: 12/08/19 07:37 Dose: 300 mg Documented by: [id number] Lactated Ringer's (Lr) 1,000 mls @ 15 mls/hr IV .Q24H CHA Stop: 12/09/19 05:59 Last Infusion: 12/08/19 07:42 Dose: 0 mls/hr Documented by: [id number] Admin: 12/08/19 07:06 Dose: 15 mls/hr Documented by: [id number] Cefazolin Sodium (Ancef 2000mg) 2,000 mg in 15 mls @ 3.75 mls/min IV PREOP CHA; Protocol Stop: 12/08/19 18:00 Last Admin: 12/08/19 07:42 Dose: 3.75 mls/min Documented by: [id number] Sodium Chloride (Nss 1000ml) 1,000 mls @ 100 mls/hr IV .Q10H CHA Stop: 01/07/20 10:50 Last Admin: 12/09/19 08:03 Dose: Not Given Documented by: [id number] Infusion: 12/09/19 06:14 Dose: 0 mls/hr Documented by: [id number] Admin: 12/08/19 20:42 Dose: 100 mls/hr Documented by: [id number] Infusion: 12/08/19 20:42 Dose: 100 mls/hr Documented by: [id number] Infusion: 12/08/19 14:30 Dose: 100 mls/hr Documented by: [id number] Admin: 12/08/19 11:31 Dose: 100 mls/hr Documented by: [id number] Cefazolin Sodium (Ancef 2000mg) 2,000 mg in 15 mls @ 3.75 mls/min IV Q8H [facility]; Protocol Stop: 12/09/19 00:03 Last Admin: 12/08/19 23:49 Dose: 3.75 mls/min Documented by: [id number] Admin: 12/08/19 17:53 Dose: 3.75 mls/min Documented by: [id number] Promethazine HCl 6.25 mg/ (Sodium Chloride) 50.25 mls @ 201 mls/hr IV NOW STA Stop: 12/08/19 11:44 Last Admin: 12/08/19 13:06 Dose: Not Given Documented by: [id number] Insulin Aspart (Insulin Aspart 100 Units/Ml 3 Ml Pen) 0 units SC 0000 CHA; Protocol Stop: 12/09/19 00:01 Last Admin: 12/08/19 23:56 Dose: 1 units Documented by: [id number] Cosigned by: [id number] Insulin Human NPH (Novolin-N (Nph) Per Unit Charge) 15 units SQ NOW ONE Stop: 12/08/19 12:46 Last Admin: 12/08/19 13:08 Dose: 15 units Documented by: [id number] Cosigned by: [id number] Miscellaneous ( Floseal Hemostatic Matrix 10ml) 20 ml TOP ONCE ONE Stop: 12/08/19 08:22 Last Admin: 12/08/19 09:40 Dose: 25 ml Documented by: [id number] Ondansetron HCl (Ondansetron Inj 2 Mg/Ml 2 Ml Vial) 4 mg IV ONCE PRN PRN Reason: PACU Use Only-Nausea/Vomiting Stop: 12/08/19 15:11 Last Admin: 12/08/19 10:13 Dose: 4 mg Documented by: [id number]
[2019-12-09] MEDS ORDERED: GLIMEPIRIDE 2 MG TAB PO SCH (09:00)
[2019-12-09] MEDS: TRAMADOL HCL 50 MG TABLET PO PRN (11:54)
[2019-12-09] MEDS: ACETAMINOPHEN 500 MG TAB PO PRN ×2 (11:55→23:57)
--- NOTE | 2019-12-09 12:48 | Pharmacy Report ---
Pharmacy Glycemic Short Note 2 - Date of Service December 09, 2019 - Glycemic Short BSG Results (Last 24 hours): 12/08/19 12/08/19 12/08/19 17:15 20:30 23:54 Glucose POC Glucose 154 H 160 H 153 H 12/09/19 12/09/19 12/09/19 05:30 08:31 12:23 Glucose 171 H POC Glucose 143 H 118 H OUTPATIENT ANTIDIABETIC REGIMEN: * glimepiride 1 mg qAM, metformin 1 gm bid ASSESSMENT: * Patient now POD 1 surgery, received 29 units of insulin yesterday. Of which, 15 were NPH to help cover steroids * Fasting BSG 143 mg/dL - hold further basal as I anticipate insulin needs to decrease with steroids wearing off * Lunch BSG 118 mg/dL - will loosen CR slightly. Plan to restart home metformin with dinner PLAN FOR INPATIENT GLYCEMIC CONTROL: * Restart home metformin this evening - renal function stable/PO intake adequate * Basal insulin * hold * Bolus insulin * NovoLog per scale ACHS or Q6hrs while NPO * Goal Range: Low 110 mg/dL - High 140 mg/dL * Correction Factor: 30 mg/dL/unit * Nutritional / Prandial insulin per carb ratio of 1 unit per 12 grams CHO consumed PLAN FOR DISCHARGE: * A1C 5.8% - per medical clearance prior to surgery * Would recommend continuation of home diabetic agents as long as patient is not experiencing frequent hypoglycemia.
--- NOTE | 2019-12-09 13:37 | Orthopedic Progress Note ---
Date of Service December 09, 2019 Assessment & Plan (1) Neurogenic claudication due to lumbar spinal stenosis: Admission and Anticipated Discharge Date Admission Date: Patient is doing well. Continue physical therapy. Anticipate discharge home in the next few days. Subjective Back pain controlled leg symptoms markedly improved Physical Exam Physical Exam: Patient is ambulating halls. Is good strength testing. Peers comfortable. Results & Data ([facility]) Vital Signs (Past 12 Hours) Vital Signs Temp Pulse Resp BP BP Pulse Ox 12/09/19 07:21 36.5 C 68 16 168/64 H 163/87 H 96 12/09/19 03:45 36.6 C 70 14 149/87 H 96
[2019-12-09] MEDS: METFORMIN HCL 500 MG TAB PO SCH (17:18)
[2019-12-09] MEDS: CITALOPRAM 20 MG TAB PO SCH (20:48)
[2019-12-09] MEDS: DOCUSATE SODIUM/SENNA 50/8.6MG TAB PO SCH (20:50)
[2019-12-09] MEDS: ATORVASTATIN 20 MG TAB PO SCH (20:50)
[2019-12-09] MEDS: FINASTERIDE 5 MG TAB PO SCH (20:50)
[2019-12-10] MEDS: POLYETHYLENE (MIRALAX) 17 GM PACK PO SCH ×2 (05:24→12:30)
[2019-12-10] MEDS ORDERED: INSULIN HUMAN NPH SC SCH (07:30)
[2019-12-10] MEDS: METFORMIN HCL 500 MG TAB PO SCH (08:32)
[2019-12-10] MEDS: MULTIVITAMIN TAB PO SCH (08:33)
[2019-12-10] MEDS: CYANOCOBALAMIN 500 MCG TABLET (VITAMIN B-12) PO SCH (08:33)
[2019-12-10] MEDS: AMLODIPINE BESYLATE 5 MG TAB PO SCH (08:33)
[2019-12-10] MEDS: ASPIRIN 81 MG CHEW PO SCH (08:33)
[2019-12-10] MEDS: INSULIN ASPART 100 UNITS/ML 3 ML PEN SC SCH ×2 (08:34→12:42)
[2019-12-10] MEDS: lisinopriL 40 MG TAB PO SCH (08:34)
--- NOTE | 2019-12-10 08:36 | Pharmacy Report ---
Pharmacy Glycemic Short Note 2 - Date of Service December 10, 2019 - Glycemic Short BSG Results (Last 24 hours): 12/09/19 12/09/19 12/09/19 12:23 17:12 20:31 POC Glucose 118 H 158 H 124 H 12/10/19 08:24 POC Glucose 151 H OUTPATIENT ANTIDIABETIC REGIMEN: * Glimepiride 1 mg po qAM * Metformin 1 g po BID ASSESSMENT: 12/09 * Dexamethasone resumed this AM - ordered for 8 mg IV qAM * Will add back NPH this AM * Will tighten CHO ratio 12/08 * Patient now POD 1 surgery, received 29 units of insulin yesterday. Of which, 15 were NPH to help cover steroids * Fasting BSG 143 mg/dL - hold further basal as I anticipate insulin needs to decrease with steroids wearing off * Lunch BSG 118 mg/dL - will loosen CR slightly. Plan to restart home metformin with dinner PLAN FOR INPATIENT GLYCEMIC CONTROL: * Home metformin 1 g po BID * Basal insulin - resume * NPH 15-20 units SC qAM to be given with dexamethasone. Dose dependent on BSG * Bolus insulin - tighten CHO ratio * NovoLog per scale ACHS or Q6hrs while NPO * Goal Range: Low 110 mg/dL - High 140 mg/dL * Correction Factor: 30 mg/dL/unit * Nutritional / Prandial insulin per carb ratio of 1 unit per 9 grams CHO consumed PLAN FOR DISCHARGE: * A1C 5.8% - per medical clearance prior to surgery * Would recommend continuation of home diabetic agents as long as patient is not experiencing frequent hypoglycemia and renal function is at baseline at discharge
[2019-12-10] MEDS ORDERED: DEXAMETHASONE SOD PHOSPHATE 8 MG in SYRINGE 0 ML IV SCH (09:00)
--- NOTE | 2019-12-10 11:39 | Discharge Summary ---
Date of Service December 10, 2019 Admission HPI Per Admitting Provider This is a 74-year-old male who presents with marked decline in status with back and bilateral leg pain. After failing a course of nonoperative care is here for surgical invention. Principal Diagnosis Lumbar spinal stenosis with neurogenic claudication Discharge Data Allergies Allergy/AdvReac Type Severity Reaction Status Date / Time No Known Allergies Allergy Unknown Verified 12/08/19 06:58 Consultations 12/08/19 10:51 Consult Case Management - Discharge Planning Routine Consult Hospitalist Routine Procedures Performed Operation Date: 12/08/19 07:45 Actual Procedures p L2-L3 Decompression and Fusion with Interbody, Spinal Cord Monitoring(Not Applicable) - Beto Palomino DO s L3-L5 Medicrea Removal(Not Applicable) - Beto Palomino DO Ordered Studies 12/08/19 07:45 FL fluoroscopy <1hr Routine FL lumbar spine 2-3V Routine Hospital Course (1) Neurogenic claudication due to lumbar spinal stenosis: Patient with lumbar decompression fusion tolerated so was taken to o rthopedic for postoperative. Postop day 1 is up and up ambulating well. Postop day 1 to continue to ambulate well with marked improvement in back and leg symptoms strength intact. Subsequently discharged home. Discharge orders instructions from the chart for further review. Total Time Total Time Spent Total Time Spent (In Minutes): 20 minutes Discharge Plan Discharge Items Patient Disposition: Home - Self-Care Reason For Visit: Spinal Stenosis, Lumbar Region with Neurogenic Cla Discharge Diagnosis: Lumbar spinal stenosis with neurogenic claudication Activity: As commented below Non-emergency contact: Primary Care Provider Call non-emergency contact if: you have any medication questions Follow-up/Referrals: Nette Khoury PA-C [Primary Care Provider] - Diet: Regular Addtl Attending Provider Instructions: ACTIVITY RECOMMENDATIONS: SELF CARE INSTRUCTIONS AFTER THORACIC/LUMBAR FUSIONS 1. You may walk to your tolerance. It is good exercise for your legs and back. Expect some back and intermittent leg aches and pains. 2. You may perform "counter-top" level activities (make a sandwich, tonia with a project, etc.). 3. No bending or lifting of more than 10 pounds or back twisting of any nature (roll like a log when turning in bed). 4. You may ride in a car for 20-30 minutes at a time. No driving until after your first visit with your doctor. 5. Frequent changes of position and restricting sitting to 30 minutes at a time will help limit the amount of back spasms and stiffness you may experience. 6. You may discontinue the use of ambulatory aids (cane, crutches, etc.) once your strength and confidence allow. 7. You may supervisor finishing the shower and let water strike your incision when you arrive home at least once daily. Do not take a tub bath, sit in a hot tub or go into a swimming pool until after your first recheck in the office. SPECIAL CARE INSTRUCTIONS: VERY IMPORTANT TO READ AND REVIEW A. Your surgical incision has been closed with a cosmetic suture under the skin that will dissolve in about 6 weeks. In 14 days, you can use a pair of clean scissors and cut the suture that is left outside of the skin at the ends of your incision. 1. The small skin tapes can be removed 7 days after surgery if they have not fallen off by that point. 2. You may keep the wound open to air as much as possible to promote healing after post-op day number 5 unless told otherwise by your doctor. 3. If you think the wound looks like it is becoming infected (redness or worsening drainage) and/or you are experiencing fever, chill or worsening back pain and muscle spasms, contact the office so that we may evaluate you as soon as possible. B. Complications are uncommon, but please contact us if you have any signs or symptoms of: 1. wound infection (fever higher than 102.5 degrees F, redness, separation of wound, drainage, or increasing pain from the incision) 2. blood clots in legs (pain, swelling, redness and warmth in legs) 3. urinary tract infection (fever higher than 102.5 degrees F, burning upon urination or increased frequency of urination) 4. nerve problems (inability to walk on your toes or heels, numbness, loss of bowel or bladder control) 5. any other symptoms that concern you C. Please call the office at if you have any concerns or questions about your operation or recovery. D. No smoking! Smoking drastically decreases the chance of a solid fusion. E. Do not take any anti-inflammatory medications (Indocin, Advil, Motrin, Aspirin, Naprosyn, etc.) as these may inhibit the chance of a solid fusion. Tylenol is okay to take for pain. MANAGING PAIN AFTER SPINAL SURGERY 1. Narcotic medication is intended for short-term use and will be provided for surgical pain. Surgical pain usually lasts for a period of 4-6 weeks. Narcotic medication includes Percocet, Vicodin, Darvocet, Tylenol #3 or Lortab. 2. Longer-term pain is more appropriately treated with non-narcotic medication such as Tylenol ES. 3. Muscle spasm is not appropriately treated with narcotics. Muscle relaxers such as Soma, Flexeril or Skelaxin can be used along with Tylenol ES. 4. Remember that we all live with some "aches and pains". This is not unusual or uncommon after an injury or as we get older. a. Back pain is expected and may include muscle spasms for 4 to 6 weeks after surgery. The pain should gradually improve. If the pain worsens for no apparent reason, please contact the office. b. Intermittent leg pain may also be experienced and should not be concerned about unless it worsens for no apparent reason. If so, please contact the office. 5. We will provide appropriate medication within the normal guidelines of their prescribed use. We will also be very cautious and aware of potential abuse and extended duration of patients' medication needs. a. Pain medications are for your comfort and to assist with sleep and rest so that the tissue can heal. They are not provided in order to return to normal activity and should not be used through the day. To do so or worsening pain at night can result from ongoing tissue damage and development of tolerance to the prescribed medicine. 6. Please allow 2-3 days to process refills. Prescriptions will not be mailed but must be picked up at the office. FOLLOW UP VISIT: Keep your scheduled follow-up appointment. Any questions, please call the office at . Pending Studies at Discharge: No Stand-Alone Forms: My Risk I/O, Smoking Cessation Medications and DC Order Prescriptions: New tramadol 50 mg tablet 50 mg PO Q6H PRN (Reason: pain, moderate) Qty: 20 RF: 0 oxycodone 5 mg tablet 5 mg PO Q6H PRN (Reason: pain, severe) Qty: 20 RF: 0 Continued multivitamin Tablet 1 tab PO QAM RF: 0 atorvastatin [Lipitor] 20 mg Tablet 20 mg PO QPM RF: 0 citalopram [Celexa] 10 mg Tablet 10 mg PO QPM RF: 0 cyanocobalamin (vitamin B-12) [Vitamin B-12] 1,000 mcg Tablet 1,000 mcg PO QAM RF: 0 amlodipine [Norvasc] 2.5 mg Tablet 2.5 mg PO QAM RF: 0 glimepiride 2 mg Tablet 1 mg PO QAM RF: 0 metformin 1,000 mg Tablet 1,000 mg PO BID RF: 0 aspirin 81 mg Tablet,Chewable 81 mg PO QAM RF: 0 lisinopril 40 mg Tablet 40 mg PO QAM RF: 0 finasteride 5 mg Tablet 5 mg PO QPM RF: 0 metronidazole [Metrogel] 1 % Gel 1 applic TOPICAL UD PRN (Reason: ud) RF: 0 Discharge Orders: Discharge Order (Routine); Ordered 12/10/19 Ordered By: Beto Palomino Admission Data Admit Date/Time: 12/08/19 10:14 Attending Provider: Beto Palomino Admit Provider: Beto Palomino Primary Care Provider: Nette Khoury Other Providers: Bk Dale ; Rhonda Antoine ; Aicha Velez
[2019-12-10] MEDS: ACETAMINOPHEN 500 MG TAB PO PRN (14:17)
[2019-12-10] MEDS: TRAMADOL HCL 50 MG TABLET PO PRN (14:17)
== END 2019-12-10 15:00 | disposition home or self-care (01) | DRG 455 ==
LOC: ASU 06:34 → 3E 10:14